=== PATIENT | male | born 1970 | race Caucasian/White ===

== ENCOUNTER 2017-07-26 19:32 | Emergency (ER) | payer OTHER ==
[~2017-07-26] VITALS: Ht 175.3 cm; Wt 83.9 kg
[2017-07-26] MEDS ORDERED: AZITHROMYCIN500 MG PO (22:12)
[2017-07-26] MEDS ORDERED: MEDROLPACK PO (22:12)
== END 2017-07-26 22:19 | disposition home or self-care (01) ==
LOC: ER 19:32
DX: T16.2XXA Foreign body in left ear, initial encounter (principal); X58.XXXA Exposure to other specified factors, initial encounter; Y93.89 Activity, other specified; Y92.89 Other specified places as the place of occurrence of the external cause; Y99.8 Other external cause status

== ENCOUNTER 2018-06-23 21:57 | Emergency (ER) | payer OTHER ==
[~2018-06-23] VITALS: Ht 170.2 cm; Wt 86.2 kg
[~2018-06-23 21:57] MED LIST: AZITHROMYCIN500 MG PO; MEDROLPACK PO
== END 2018-06-23 23:53 | disposition home or self-care (01) ==
LOC: ER 21:57
DX: H60.8X1 Other otitis externa, right ear (principal); B34.9 Viral infection, unspecified

== ENCOUNTER 2018-07-06 11:41 | Emergency (ER) | payer OTHER ==
[~2018-07-06] VITALS: Ht 170.2 cm; Wt 86.2 kg
== END 2018-07-06 15:57 | disposition home or self-care (01) ==
LOC: ER 11:41
DX: J06.9 Acute upper respiratory infection, unspecified (principal)

== ENCOUNTER 2019-02-21 15:00 | Emergency (ER) | payer OTHER ==
[~2019-02-21] VITALS: Ht 175.3 cm; Wt 80.7 kg
== END 2019-02-21 16:33 | disposition home or self-care (01) ==
LOC: ER 15:00
DX: J35.01 Chronic tonsillitis (principal)

== ENCOUNTER 2020-01-23 14:18 | Inpatient (IN) | payer OTHER ==
[~2020-01-23] VITALS: Ht 175.3 cm; Wt 90.7 kg
--- NOTE | 2020-01-23 15:11 | NUR ---
PTE REFIERE VOMITOS DOLOR EN EL CUERPO Y QUEMAZON DESDE HACE 3 HUANG SE RIKY S/V YS EUBIAC EN AREA DE OBSERVACION
--- NOTE | 2020-01-23 17:09 | NUR ---
MS GILLESPIE ORIENTA PTE SOBRE TX MEDICO EL CUAL REFIERE ENTENDER.SE LE EXTRAEN MUESTRAS BAJO MEDIDAS ASEPTICAS,SE CANALIZA Y SE ADMINISTRA MEDICAMENOT ADAMS ORDEN MEDICA.
[2020-02-02] MEDS ORDERED: HUMALOG100 UNIT/1 SUBCUTANEO ×2 (12:46)
[2020-02-02] MEDS ORDERED: LANTUS SOL100 UNIT/1 SUBCUTANEO (12:52)
[2020-02-02] MEDS ORDERED: INSULIN SYRING1 EA10 SUBCUTANEO (12:53)
== END 2020-02-02 14:09 | disposition home or self-care (01) | DRG 638 ==
LOC: ER 14:18 → ICU-2 19:54 → MEDJ 01-26 11:11
PROVIDERS: ADMIT Internal Medicine; ATTEND Internal Medicine
PROC: 4A033R1 Measurement of Arterial Saturation, Peripheral, Percutaneous Approach (ICD-10-PCS; principal; 2020-01-23)
DX: E11.10 Type 2 diabetes mellitus with ketoacidosis without coma (principal); E87.2 Acidosis; E87.0 Hyperosmolality and hypernatremia; E86.0 Dehydration; E83.52 Hypercalcemia; Z20.828 Contact with and (suspected) exposure to other viral communicable diseases; E87.6 Hypokalemia; R74.8 Abnormal levels of other serum enzymes